=== PATIENT | female | born 1970 | race African-American/Black ===

== ENCOUNTER 2020-11-26 16:48 | Inpatient (IN) | payer OTHER ==
[~2020-11-26] VITALS: Ht 172.7 cm; Wt 176.0 kg
[2020-11-26 16:48] VITALS: BP 128/66
[2020-11-26 17:31] LABS: ABSOLUTE NEUTROPHILS 2.8 thou/uL (1.4-8.2); BASOPHILS 0.3 % (0.0-2.0); HEMATOCRIT 40.4 % (37.0-47.0); HEMOGLOBIN 13.1 gm/dL (12.0-15.0); LYMPHOCYTES 24.6 % (24.0-44.0); MCH 26.5 pg (26.0-34.0); MCHC 32.5 g/dL (28.0-37.0); MCV 81.7 fL (80.0-100.0); MONOCYTES 5.8 % (1.0-8.0); PLATELET COUNT 157 thou/uL (150-400); POLYS 69.3 % (36.0-66.0); RBC 4.94 mil/uL (4.20-5.00); RDW 15.6 % (10.5-14.5); WBC 4.1 thou/uL (4.0-11.0)
[2020-11-26 17:35] LABS: POTASSIUM 3.7 mmol/L (3.5-5.1)
[2020-11-26 17:41] LABS: ALBUMIN 2.7 g/dL (3.4-5.0); TOTAL BILIRUBIN 0.4 mg/dL (0.2-1.0); TOTAL PROTEIN 7.5 g/dL (6.4-8.2)
[2020-11-26 20:05] LABS: URINE BILIRUBIN NEGATIVE (Negative); URINE BLOOD TRACE (Negative); URINE CLARITY CLEAR; URINE COLOR YELLOW; URINE GLUCOSE-RANDOM* 2+ (Negative); URINE KETONES NEGATIVE (Negative); URINE LEUKOCYTES-REFLEX NEGATIVE (Negative); URINE NITRITE-REFLEX NEGATIVE (Negative); URINE PROTEIN (DIPSTICK) 2+ (Negative); URINE UROBILINOGEN 0.2 E.U./dl (0.2-1.0)
[2020-11-26 20:16] LABS: SQUAMOUS >10 Many /LPF (0-3)
[2020-11-26 20:20] LABS: URINE RBC 1-2 Rare /HPF (NONE SEEN); URINE WBC-REFLEX 6-15 Few /HPF (0-5)
--- NOTE | 2020-11-27 07:19 | NUR ---
TOOK OVER CARE FROM PAL POWERS AT THIS TIME
--- NOTE | 2020-11-27 07:37 | EKG ---
[address] [place] [address] ELECTROCARDIOGRAM REPORT Name: CLOUDALEK Room #: 170-5 ADM IN M.R.#: [id number] Admission: 11/26/20 Attend Phys: Bautista Hein MD Discharge: Date of : 66 Report #: [id number] [facility] ED Test Date: 2020-11-26 Test Time: 17:11:47 Pat Name: ALEK CLOUD Department: Room: 170 Gender: F Gum Cook: TAMAR : 1970 Requested By: Norris Gallagher Order Number: [id number] MD: Josemanuel Morejon Measurements Intervals [place] Rate: 117 P: 55 TX: 145 QRS: 48 QRSD: 81 T: 0 QT: 303 QTc: 423 Interpretive Statements Sinus tachycardia Atrial premature complex Probable left atrial enlargement No previous ECG available for comparison Electronically Signed On 11-27-2020 7:37:10 CDT by Josemanuel Morejon [email or web address] <ELECTRONICALLY SIGNED> By: Josemanuel Morejon MD, [facility] 11/27/20 0737 1711 1711 Josemanuel Morejon MD, FACC /EPI
--- NOTE | 2020-11-27 08:20 | NUR ---
PT BG 415 AT THIS TIME. HOSPITALIST PAGED
[2020-11-27 08:36] LABS: HEMATOCRIT 39.8 % (37.0-47.0); HEMOGLOBIN 12.7 gm/dL (12.0-15.0); MCH 26.5 pg (26.0-34.0); MCV 82.9 fL (80.0-100.0); RBC 4.8 mil/uL (4.20-5.00); RDW 16.1 % (10.5-14.5)
[2020-11-27 08:42] LABS: CALCIUM 8.2 mg/dL (8.5-10.1)
[2020-11-27] MEDS ORDERED: GLUMETZA1000 PO (09:17)
[2020-11-27] MEDS ORDERED: XARELTO20 MG PO (09:17)
[2020-11-27] MEDS ORDERED: LIPITOR 40 MG T40 M1 PO (09:17)
[2020-11-27] MEDS ORDERED: DUONEB (09:19)
[2020-11-27] MEDS ORDERED: COMBIVENT RESPIM4 GM (09:19)
[2020-11-27] MEDS ORDERED: VICTOZA0.6 MG/0.1 SUBQ (09:21)
[2020-11-27] MEDS ORDERED: HYDROCODON-ACE1 EA11 PO (09:21)
[2020-11-27] MEDS ORDERED: SERTRALINE HCL25 M1 PO (09:22)
[2020-11-27] MEDS ORDERED: HYDROCHLOROTHIA25 M1 PO (09:22)
--- NOTE | 2020-11-27 09:29 | NUR ---
50-year-old female presented to the ED on 11-26-20 at 1657 for previous positive Covid dx at [place] on 11-19-20 and worsening shortness of air. She arrived via local EMS. She relates she was tested positive on 11/19/2020. She also is complaining of grayish phlegm as well as myalgias and pain when she coughs across her chest. She reports that she did not receive any of the vaccines and positive in the ED from [facility] testing. She reports additional symptoms of fever and fatigue as well. The patient has been admitted for Acute hypoxic respiratory failure secondary to COVID-19 infection, fever, cough, cough DM type 2, HTN/HLD, DIMAS with CPAP. ED nursing assessment shows that patient is A&O x4. As the patient's plan of care from the MD's gets closer to discharge; CM will follow for discharge planning needs.
--- NOTE | 2020-11-27 11:45 | NUR ---
DR. GONZALEZ PAGED AT THIS TIME D/T PT RESPIRATORY STATUS.
--- NOTE | 2020-11-27 12:24 | NUR ---
DR. GONZALEZ AT BEDSIDE AT THIS TIME
[2020-11-27 12:38] LABS: BE(vivo) -2.3 mmol/L (-2 to +3); HCO3 22.3 mmol/L (22.0-26.0); PCO2 37.8 mmHg (35.0-45.0); PO2 64.5 mmHg (80.0-100.0); pH 7.389 (7.360-7.450); sO2 92.5 % (92.0-98.0)
[2020-11-27 14:27] VITALS: BP 129/70
--- NOTE | 2020-11-27 14:56 | EKG ---
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 <ELECTRONICALLY SIGNED> By: Josemanuel Morejon MD, FACC 11/27/20 1456 38 38 Josemanuel Morejon MD, [facility] /EPI
--- NOTE | 2020-11-27 15:22 | NUR ---
REPORT GIVEN TO PAL HUGO AT THIS TIME. DENIES FURTHER QUESTIONS AT THIS TIME. NOTES THAT [facility] IS STILL CLEANING ROOM AT THIS TIME AND WILL CALL WHEN CLEAN.
[2020-11-27 15:46] VITALS: BP 103/59
[2020-11-27 16:40] VITALS: BP 122/81
[2020-11-27 19:42] VITALS: BP 140/76
[2020-11-28 00:06] LABS: GLYCOHEMOGLOBIN (HGB A1C) 9.4 % (4.8-5.6)
[2020-11-28 02:10] LABS: ABSOLUTE NEUTROPHILS 8.2 thou/uL (1.4-8.2); BASOPHILS 0.1 % (0.0-2.0); HEMATOCRIT 35.4 % (37.0-47.0); HEMOGLOBIN 11.5 gm/dL (12.0-15.0); LYMPHOCYTES 5.7 % (24.0-44.0); MCH 26.9 pg (26.0-34.0); MCHC 32.5 g/dL (28.0-37.0); MCV 82.8 fL (80.0-100.0); MONOCYTES 2.8 % (1.0-8.0); PLATELET COUNT 181 thou/uL (150-400); POLYS 91.4 % (36.0-66.0); RBC 4.27 mil/uL (4.20-5.00); RDW 16.2 % (10.5-14.5); WBC 8.9 thou/uL (4.0-11.0)
[2020-11-28 03:21] VITALS: BP 128/82
[2020-11-28 03:25] LABS: ALBUMIN 2.2 g/dL (3.4-5.0); ANION GAP 10 mmol/L (7-16); BUN 14 mg/dL (7-18); CHLORIDE 104 mmol/L (98-107); CO2 24 mmol/L (21-32); CREATININE 0.9 mg/dL (0.6-1.0); DIRECT BILIRUBIN < 0.1 mg/dL (<0.1-0.2); GLUCOSE 359 mg/dL (74-106); PHOSPHORUS 2.3 mg/dL (2.5-4.9); POTASSIUM 3.7 mmol/L (3.5-5.1); SGOT 33 U/L (15-37); SGPT 47 U/L (30-65); SODIUM 138 mmol/L (136-145); TOTAL BILIRUBIN 0.2 mg/dL (0.2-1.0); TOTAL PROTEIN 6.6 g/dL (6.4-8.2)
[2020-11-28 03:36] LABS: INR 1.06; PROTIME 11.5 Seconds (10.5-12.1)
[2020-11-28 07:45] VITALS: BP 134/74
--- NOTE | 2020-11-28 11:31 | NUR ---
INITIAL ASSESSMENT: SW reviewed chart and spoke with nursing and attending physician. Pt was admitted from home due to COVID pneumonia. Pt placed in Enhanced Isolation. Pt had positive COVID test at [facility] on 11/19/2020. Pt has not received the COVID vaccine. Pt is afebrile and currenlty requiring 7L of O2. Pt is on IV abx and IV steroids. Pt has been started on Remdesivir. SW spoke with pt via phone. Introduced role of SW. Pt is alert/orientated and states she lives at home alone. Pt's son has been staying with her since she was dx with COVID. Prior to admission, pt was independent with ADLs. No use of DME for ambulation. Pt has an inhaler and cpap machine through [facility]. No hx of services or post-acute placement. Pt's PCP is Dr. Allegra Rodriguez with [facility] in [place]. Therapy evals to be ordered when pt is able to participate. SW is following to assist as needed with discharge planning.
--- NOTE | 2020-11-28 13:02 | NUR ---
Consulted d/t weight changes. BMI 57, extreme class III obesity. Attempted to phone pt x2 today, with no answer. Unable to obtain weight hx. Dx COVID+, covid PNE, SOA. On vit c, Vit D, thiamine, MVI, glargine, ABT, IVFs, steroids, remdesivir. BS range 371-467, likely elevated d/t steroids[facility] intake this AM. BM 11/27. Follow weight and intake trends, place at low nutrition risk at this time.
[2020-11-28 15:25] VITALS: BP 137/73
--- NOTE | 2020-11-28 17:12 | NUR ---
PT RESTING COMFORTABLY. SHE HAS BEEN EDUCATED ON POSSIBLY IMPORTANCE OF SELF PRONNING. WAITING FOR FAMILY TO BRING IN HOME CPAP. BLOOD SUGARS NOT UNDER CONTROL. PT AFEBRILE, ADEQUATE UOP, NO BM, APPROPRIATE APPETITE. PT CONTINUES TO BE ON 6L NC. PT AND FAMILY HAVE BEEN THOUROUGHLY UPDATED AND EDUCATED ON PT CONDITION AND POC. PT SLOWLY PROGRESSING TOWARDS POC.
[2020-11-28 21:46] VITALS: BP 124/68
[2020-11-29 01:06] LABS: HIV ANTIBODY Non Reactive (Non Reactive)
[2020-11-29 03:13] LABS: ABSOLUTE NEUTROPHILS 6.9 thou/uL (1.4-8.2); BASOPHILS 0.2 % (0.0-2.0); EOSINOPHILS 0.1 % (0.0-3.0); HEMATOCRIT 34.8 % (37.0-47.0); HEMOGLOBIN 11.2 gm/dL (12.0-15.0); LYMPHOCYTES 8.6 % (24.0-44.0); MCH 26.8 pg (26.0-34.0); MCHC 32.2 g/dL (28.0-37.0); MCV 83.2 fL (80.0-100.0); MONOCYTES 2.2 % (1.0-8.0); PLATELET COUNT 223 thou/uL (150-400); POLYS 88.9 % (36.0-66.0); RBC 4.19 mil/uL (4.20-5.00); RDW 16.3 % (10.5-14.5); WBC 7.8 thou/uL (4.0-11.0)
[2020-11-29 03:50] LABS: ANION GAP 9 mmol/L (7-16); BUN 16 mg/dL (7-18); CALCIUM 8.4 mg/dL (8.5-10.1); CHLORIDE 107 mmol/L (98-107); CO2 25 mmol/L (21-32); CREATININE 0.9 mg/dL (0.6-1.0); DIRECT BILIRUBIN < 0.1 mg/dL (<0.1-0.2); GLUCOSE 334 mg/dL (74-106); PHOSPHORUS 2.1 mg/dL (2.5-4.9); POTASSIUM 4.3 mmol/L (3.5-5.1); SGOT 34 U/L (15-37); SGPT 37 U/L (30-65); SODIUM 141 mmol/L (136-145); TOTAL BILIRUBIN 0.3 mg/dL (0.2-1.0); TOTAL PROTEIN 6.4 g/dL (6.4-8.2)
--- NOTE | 2020-11-29 04:23 | NUR ---
PT REMAIN ALERT AND ORIENT TIMES FOUR. UP TO BSC WITH STEADY GAIT. PT WAS INCONT. TO URINE R/T BSC BEING WAY TOO FAR AND PT WAS NOT ABLE TO MAKE THE DISTANCE TO GET ON THE COMMODE. PT FELT HUMILIATED. RN CLEANED URINE OFF THE FLOOR AND CHANGED ALL OF THE LINEN, PROVIDED A CLEAN GOWN AND ASSURED PT THAT SHE WAS OK. PT STATE THAT SHE CALLED OUT SEVERAL TIMES ON THE DAY SHIFT AND NO ONE WOULD COME TO ASSIST HER TO THE COMMODE. PT STATE THAT SHE COULD NO LONGER HOLD HER URINE. PT IS CURRENTLY ON 6 LITERS, REFUSED CPAP TONIGHT. FAMILY IS SUPPOSE TO DROP HER HOME CPAP OFF TOMORROW. HYDROCODONE AND QUAIFENESIN GIVEN FOR DRY COUGH AND "ALL OVER" PAIN. VSS, AFEBRILE. SLOW PROGRESS TOWARDS DC GOALS. WILL CONTINUE TO MONITOR.
[2020-11-29 07:49] VITALS: BP 152/101
--- NOTE | 2020-11-29 14:36 | NUR ---
PT RESTING COMFORTABLY. ON 10L NC, OR BIPAP AT 50%. PTS SON BROUGHT HOME CPAP. PT HAS BEEN EDUCATED ON THE IMPORTANCE OF LETTING THE RN KNOW IF SHE BEGINS TO FEEL FATIGUED. PT AFEBRILE, ADEQUATE UOP, BM X1, APPROPRIATE APPETITE. HIGH DOSE SS INSULIN NOW IN PLACE. PT AND FAMILY HAVE BEEN THOUROUGHLY UPDATED AND EDUCATED ON PT CONDITION AND POC. PT SLOWLY PROGRESSING TOWARDS POC.
--- NOTE | 2020-11-29 15:12 | NUR ---
SW reviewed chart and spoke with nursing and attending physician. Pt remains in Enhanced Isolation due to COVID. Pt is afebrile and requiring 10 L of O2. Pt's family brought in her home cpap machine. Pt is on IV steroids and Remdesivir. Pt might need to transfer to ICU. No weekend discharge planned. SW is following to assist as needed with discharge planning.
[2020-11-29 20:11] VITALS: BP 144/87
[2020-11-30 04:20] VITALS: BP 140/88
[2020-11-30 04:26] LABS: ALBUMIN 2.1 g/dL (3.4-5.0); CALCIUM 8.3 mg/dL (8.5-10.1); CREATININE 0.8 mg/dL (0.6-1.0); DIRECT BILIRUBIN 0.1 mg/dL (<0.1-0.2); PHOSPHORUS 2.9 mg/dL (2.5-4.9); POTASSIUM 3.7 mmol/L (3.5-5.1); TOTAL BILIRUBIN 0.4 mg/dL (0.2-1.0); TOTAL PROTEIN 6.5 g/dL (6.4-8.2)
[2020-11-30 04:39] LABS: BASOPHILS 0.4 % (0.0-2.0); HEMATOCRIT 36.5 % (37.0-47.0); HEMOGLOBIN 11.9 gm/dL (12.0-15.0); LYMPHOCYTES 13.7 % (24.0-44.0); MCHC 32.6 g/dL (28.0-37.0); MCV 82.8 fL (80.0-100.0); MONOCYTES 4.2 % (1.0-8.0); PLATELET COUNT 253 thou/uL (150-400); POLYS 81.7 % (36.0-66.0); RBC 4.41 mil/uL (4.20-5.00); WBC 6.1 thou/uL (4.0-11.0)
--- NOTE | 2020-11-30 05:04 | NUR ---
PROGRESS PT A/0 X4, UP AD SHANTI. LUNGS COARSE AND WHEEZY THROUGHOUT RT TREATMENTS ORDERED, ON CPAP WHICH SHE IS HAVING DIFFICULTY TOLERATING ALARMS BECAUSE SHE IS MOUTH BREATHING AND HAS A NASAL MASK ON. PIV WITH INTERMITTENT ABTS. VOIDING QS. TELEMETRY READING SR/ST LOW 100'S CONTINUE TO MONITOR.
[2020-11-30 07:42] VITALS: BP 135/81
[2020-11-30 10:03] VITALS: BP 135/81
--- NOTE | 2020-11-30 10:32 | NUR ---
ASSUMED CARE OF PT THIS AM. PT IS A&O X4. CURRENTLY ON CPAP 10L, 75% FIO2. PT C/O NONCARDIAC CHEST PAIN D/T COUGHING. GIVEN PRN PAIN & COUGH MEDICATIONS. SOB WITH EXERTION. STATES SHE "CANT EAT WITHOUT HYPPERVENTILATING". PTS BROTHER, JOSE MANUEL, CALLED TO GET UPDATE THIS AM. STAND BY ASSIST TO BSC WHEN PT FEELING STRONG ENOUGH. ENHANCED PRECAUTIONS IN PLACE. WILL CONTINUE TO MONITOR.
[2020-11-30 11:19] VITALS: BP 144/68
[2020-11-30 15:42] VITALS: BP 138/75
[2020-11-30 19:46] VITALS: BP 140/68
[2020-12-01 03:56] VITALS: BP 156/83
--- NOTE | 2020-12-01 07:29 | NUR ---
PROGRESS PT A/O X4, UP WITH SBA. LUNGS COARSE AND DIMINISHED, PT ON CPAP 80%. SATS MAINTAINING IN MID 90'S. COUGHING UP SOME BLOOD TINGED SPUTUM. VOIDING QS, HAD A BM LAST NIGHT REMDESIVIR ADMINISTERED ORDERED CONTINUE POC.
[2020-12-01 08:47] LABS: T-SPOT.TB Negative
[2020-12-01 09:28] VITALS: BP 131/82
[2020-12-01 12:43] VITALS: BP 140/79
[2020-12-01 16:00] VITALS: BP 149/72
--- NOTE | 2020-12-01 16:39 | NUR ---
RN ASSUMED PT'S CARE AT 0700AM, PT IS A&OX4, PT IS CONTINUING CIPAP WITH O2 80% TO KEEP O2SAT AT 93-100%, PT'S O2SAT WILL DROP WITH PT'S ACTIVITIES, PT'S VS ARE STABLE, PT IS CONTINUING TO TREAT COVOD , PT'S VS ARE STABLE BY THIS TIME.
[2020-12-01 19:24] VITALS: BP 146/68
[2020-12-02 04:38] VITALS: BP 149/77
--- NOTE | 2020-12-02 05:24 | NUR ---
PT CONTINUES TO C/O NON-CARDIAC CHEST PAIN FROM COUGHING. SHE ALSO C/O GENERALIZED BODY ACHES. PRN COUGH MEDICINE AND PAIN MEDS GIVEN. SEE EMAR. DESPITE COUGH MEDICINE, SHE C/O INCREASED COUGH DURING THE NIGHT. CEPACOL LOZENGE GIVEN TO HELP WITH SORE THROAT/COUGH. SPO2 >92% ON CPAP. VSS. PROGRESSING SLOWLY TOWARD POC GOALS.
[2020-12-02 07:22] VITALS: BP 145/82
[2020-12-02 09:00] VITALS: BP 144/69
[2020-12-02 11:28] VITALS: BP 144/69
--- NOTE | 2020-12-02 14:56 | NUR ---
SW reviewed chart and spoke with nursing and attending physician. Pt remains in Enhanced Isolation due to COVID. Pt is afebrile and requiring continuous bipap support. Pt is on IV steroids. SW received call from pt's PCP's office requesting update. Info provided. Therapy evals to be ordered when pt is able to participate. KOJO is following to assist as needed with discharge planning.
[2020-12-02 15:26] VITALS: BP 142/66
--- NOTE | 2020-12-02 19:30 | NUR ---
RN ASSUMED PT'S CARE AT 0700-1900PM, PT IS A&OX4, PT WAS ON CIPAP WITH O2 60% AT MORNING, PT 'S CIPAP HAS CHANGED TO O2 2L/MIN/NC SINCE AFTERNOOON, PT'S O2SAT STAYS AT 93-96% AT RESTING, PT HAS SOB WITH ACTIVITIES, PT CAN GET UP TO BSC WITH ASSIST,RN HAS REPORTED TO NEXT SHIFT TO KEEP EYE ON PT.
[2020-12-02 20:20] VITALS: BP 131/67
[2020-12-03 05:16] VITALS: BP 149/94
--- NOTE | 2020-12-03 05:49 | NUR ---
VSS OVERNIGHT. TELE SHOWS SB/SR. PT STILL HAVING COMPLAINTS OF CHEST PAIN CAUSED BY COUGHING. TYLENOL AND HYDRO GIVEN FOR PAIN, AND COUGH MEDICATION GIVEN WITH GOOD RESULTS. 02 SATURATIONS IN MID 90'S WHILE ON 3L NC. CONTINUOUS PULSE OX IN PLACE.
[2020-12-03 07:22] VITALS: BP 126/74
[2020-12-03 11:16] VITALS: BP 116/94
--- NOTE | 2020-12-03 14:17 | NUR ---
KOJO reviewed chart and spoke with nursing and attending physician. Pt remains in Enhanced Isolation due to COVID. Pt is afebrile and on 6L of O2. Pt is on IV steroids. KOJO spoke with pt via phone. Pt states she feels better and is hoping to work towards discharging home. Pt is aware that she may need home O2 and/or HH when discharged. KOJO contacted attending physician regarding orders for theayo evals. KOJO is following to assist as needed with discharge planning.
[2020-12-03 15:40] VITALS: BP 140/85
[2020-12-03 19:58] VITALS: BP 112/56
[2020-12-04 04:17] VITALS: BP 137/72
[2020-12-04 07:28] VITALS: BP 126/48
[2020-12-04 11:12] VITALS: BP 149/71
--- NOTE | 2020-12-04 13:08 | NUR ---
SW reviewed chart and spoke with nursing and attending physician. Pt remains in Enhanced Isolation due to COVID. Pt is afebrile and on 6L of O2. Pt is on IV steroids. OT evaluation completed today. PT to evaluate pt tomorrow, per pt's request. SW to discuss discharge plans with pt after therapy recommendations. SW is folloiwng to assist as needed with discharge planning.
[2020-12-04 15:28] VITALS: BP 152/82
--- NOTE | 2020-12-04 18:20 | NUR ---
RN ASSUMED PT'S CARE AT 0700AM, PT IS A&OX4, PT IS ON O2 3-6L/MIN/NC, PT NEEDS MEOR O2 ( UP TO 6L/MIN/NC ) WITH ACTIVITIES, PT'S VS ARE STABLE, PT NEEDS HELP TO GET UP TO BSC, PT DENIES PAIN AT DAY SHIFT.
[2020-12-04 19:37] VITALS: BP 138/69
[2020-12-05 02:25] LABS: BASOPHILS 0.2 % (0.0-2.0); EOSINOPHILS 2.7 % (0.0-3.0); HEMATOCRIT 33.8 % (37.0-47.0); HEMOGLOBIN 10.9 gm/dL (12.0-15.0); LYMPHOCYTES 29.4 % (24.0-44.0); MCHC 32.3 g/dL (28.0-37.0); MCV 83.7 fL (80.0-100.0); PLATELET COUNT 218 thou/uL (150-400); POLYS 58.7 % (36.0-66.0); RBC 4.04 mil/uL (4.20-5.00); RDW 15.7 % (10.5-14.5); WBC 5.2 thou/uL (4.0-11.0)
[2020-12-05 02:49] LABS: D-DIMER 0.66 ug/mLFEU (0.19-0.50); INR 1.05; PROTIME 11.4 Seconds (10.5-12.1)
[2020-12-05 03:51] VITALS: BP 141/118
[2020-12-05 03:57] LABS: ALBUMIN 2.1 g/dL (3.4-5.0); CALCIUM 7.6 mg/dL (8.5-10.1); CREATININE 0.8 mg/dL (0.6-1.0); POTASSIUM 3.7 mmol/L (3.5-5.1); TOTAL BILIRUBIN 0.3 mg/dL (0.2-1.0); TOTAL PROTEIN 5.4 g/dL (6.4-8.2)
[2020-12-05 08:00] VITALS: BP 138/65
--- NOTE | 2020-12-05 09:31 | NUR ---
Nutrition follow up: Pt noted with continued good intakes at meals >80% avg. BG range still high with most readings >300. Continues on steroids. 3# gain this week. Continues low nutrition risk.
[2020-12-05 12:00] VITALS: BP 123/61
--- NOTE | 2020-12-05 15:49 | NUR ---
SW reviewed chart and spoke with nursing and attending physician. Pt remains in Enhanced Isolation due to COVID. Pt is afebrile and on 5L of O2. Pt is on IV steroids. 5N consult ordered. Awaiting additional therapy notes to determine if pt would qualify for inpt acute rehab. SW is following to assist as needed with discharge planning.
[2020-12-05 16:00] VITALS: BP 147/69
[2020-12-05 20:24] VITALS: BP 160/91
[2020-12-06 00:07] VITALS: BP 123/52
[2020-12-06 07:38] VITALS: BP 144/74
[2020-12-06 11:14] VITALS: BP 144/76
--- NOTE | 2020-12-06 12:48 | NUR ---
CARE ASSUMED THIS AM, PT ALERT AND ORIENTED X4, DENIES ANY CHEST PAIN, NAUSEA AND VOMITTING. ON 3L OF OXYGEN. UP IN CHAIR, NO SIGNS OF DISTRESS. UP TO BSC WITH STAND BY ASSIST. PT IS PROGRESSING TOWARDS POC. PT SON CALLED AND UPDATED ABT PT CARE. WILL [id number] TO MONITOR
--- NOTE | 2020-12-06 14:31 | NUR ---
KOJO reviewed chart and spoke with nursing and attending physician. Pt remains in Enhanced Isolation due to COVID. Pt is afebrile and on 2-4L of O2. Pt is on IV steroids. No weekend discharge planned. 5N consulted. Per 5N rehabilitation medicine physician, pt is back to her baseline. Pt has also refused to work with therapy. KOJO spoke with pt via phone to discuss discharge plan. Pt states she feels that she will be strong enough to return home on Wednesday/early next week. KOJO discussed need for HH services and likely home O2. Pt verbalized understanding and is agreeable with both. Options provided. No preference voiced. SW [facility] and Home O2 referral to [facility]. Notified liaison for both companies. Pt will need a rest/exercise oximetry completed to determine home O2 needs. KOJO is following to assist as needed with discharge planning.
[2020-12-06 15:57] VITALS: BP 159/79
[2020-12-06 19:39] VITALS: BP 147/73
[2020-12-07 04:00] VITALS: BP 141/70
--- NOTE | 2020-12-07 04:18 | NUR ---
continues on oxygen at 1 liter during day. she requires 2.0 liters at night while resting. pts appetite is good. she has been asking for extra food at night. sitting up at the edge of the bed this am washing herself.
[2020-12-07 07:34] VITALS: BP 139/75
--- NOTE | 2020-12-07 15:37 | NUR ---
assumed care of pt at 0700. pt aox4 no acute distress. requires 2L NC at rest and 4L w/ activity. up w/ sba. pain controlled with med regimen. calls out appropriately. anticipate d/c soon.
[2020-12-07 15:51] VITALS: BP 141/78
[2020-12-07 20:10] VITALS: BP 137/66
--- NOTE | 2020-12-08 04:52 | NUR ---
continues on 2 liters tonight. she has been resting well. she is getting close to discharge and she is aware of this. no concerns voiced.
[2020-12-08 04:56] VITALS: BP 128/76
[2020-12-08 07:48] VITALS: BP 114/669
--- NOTE | 2020-12-08 13:01 | NUR ---
CARE ASSUMED THIS AM, PT ALERT AND ORIENTED X4, DENIES ANY CHEST PAIN, NAUSEA AND VOMITTING. PT ON 2L OF OXYGEN. UP TO BSC INDEOENDENTLY. POSSIBLE /C TODAY, PT STATED SHE WILL PREFER TO GO [facility] TOMMORROW, DR. BECKMAN MADE AWARE. PT DENIES ANY NEEDS, WILL CONTINUE TO MONITOR
[2020-12-08 15:32] VITALS: BP 118/74
[2020-12-08 19:40] VITALS: BP 135/84
--- NOTE | 2020-12-09 04:44 | NUR ---
Slept some during the night. Maintaining O2 sat in the low 90's on 2L/NC. Shortness of breath with exertion. Cont. on enhanced precaution , afebrile. Cough med and pain med given with good relief.Up to commode on her own. C/O cramping on her hands at beginning of shift. Verbalized she had 2 days ago but it went away. Warm blanket given then soaked her hands with warm water and stated it helped. Denies any other concern. Making some progress towards care plan goals.
[2020-12-09 05:10] VITALS: BP 122/70
[2020-12-09 08:00] VITALS: BP 135/75
[2020-12-09] MEDS ORDERED: LANTUS SUBQ ×2 (12:44→16:40)
[2020-12-09] MEDS ORDERED: ZINC SULFATE50 MG PO (12:44)
[2020-12-09] MEDS ORDERED: GUAIFENESIN DM S5 ML PO (12:44)
[2020-12-09] MEDS ORDERED: VITAMIN B-1100 M2 PO (12:44)
[2020-12-09] MEDS ORDERED: PREDNISONE 20 M20 MG PO (12:44)
[2020-12-09] MEDS ORDERED: ACEROLA C500 MG PO (12:44)
[2020-12-09] MEDS ORDERED: CEPACOL SORE T1 EAC7 PO (12:44)
[2020-12-09] MEDS ORDERED: VITAMIN D325 MC2 PO (12:44)
[2020-12-09] MEDS ORDERED: PEPCID20 MG PO (12:44)
[2020-12-09] MEDS ORDERED: HUMALOG100 UNIT/1 SUBQ ×2 (12:44→16:40)
[2020-12-09 12:54] VITALS: BP 135/75
[2020-12-09 13:32] VITALS: BP 135/75
--- NOTE | 2020-12-09 14:15 | NUR ---
DISCHARGE NOTE: SW reviewed chart and spoke with nursing and attending physician. Pt remains in Enhanced Isolation due to COVID. Pt is medically stable for discharge home today. Recommendation made for pt to have HH services and home O2. SW faxed discharge ppwk to [facility] . Notified liaison of discharge. Confirmed info was received. SW faxed rest/exercise oximetry and script for O2 to [facility]. Notified [facility] liaison who delivered portable O2 tank to the hospital. Pt needs 2L at rest and 4L with activity. Contact info for HH and Home O2 placed in pt's discharge summary. Pt's family will provide transportation home later today. No additional SW needs identified at this time, but is available to assist should needs arise.
--- NOTE | 2020-12-09 15:05 | HC ---
[facility] [place] [address] CONSULTATION Name: ALEK CLOUD Room #: 360-P [facility] IN M.R.#: [id number] Admission: 11/26/20 Attend Phys: Bautista Hein MD Discharge: Date of : 66 Report #: [id number] THIS REPORT FOR: cc: ALPHONSE - No family physician/PCP FAM - No family physician/PCP Norris Sena MD ~ DATE OF SERVICE: 12/06/2020 HISTORY OF PRESENT ILLNESS: The patient is a 50-year-old -[place] female with COVID-19 diagnosed 11/19/2020, worsening shortness of breath, admitted 11/26/2020 to [facility]. She was diagnosed with acute respiratory failure, developed ARDS, said pulmonary, infectious disease closely involved. She was needing up to 10 liters CPAP, prone ventilator as able. She has gradually improved. She has been on the methylprednisolone, empiric treatment, azithromycin and Rocephin. She does have a history of morbid obesity, BMI noted to be 51. Continues in COVID isolation, close monitoring. Oxygen needs have decreased down to 3-4 liters. We are seeing her in rehabilitation medicine consultation. She has considerable weakness and decreased strength with a likely concurrent critical illness myopathy and generalized weakness and debilitation. PAST MEDICAL HISTORY: Includes diabetes mellitus type 2, morbid obesity, hypertension. 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 History of obstructive sleep apnea on CPAP, which she uses whenever she is sleeping. MEDICATIONS: Please see the full medication listing. ALLERGIES: No known drug allergies. SOCIAL HISTORY: Lives in an apartment. Typically, she lives alone, but her son is currently staying with her and would be able to be with her. He works environmental studies department chair. There are 15 steps to get into the apartment. She is trying to get on to the ground floor, but has not worked out yet, so she still needs to go up to 15 steps. Did not utilize gait aids premorbidly. REVIEW OF SYSTEMS: No current complaints of chest pain, shortness of breath or abdominal discomfort. PHYSICAL EXAMINATION: GENERAL: A 50-year-old morbidly obese -Ethiopian female in no obvious distress. She is pleasant, alert and oriented. VITAL SIGNS: Temperature 36.7, pulse 92, respirations 20, blood pressure 144/74. HEENT: Faces appeared symmetric. EXTREMITIES: She has functional range of motion of both upper extremities. [facility] [address] [place] [address] CONSULTATION Name: ALEK CLOUD Room #: 360-P [facility] IN .R.#: [id number] Admission: 11/26/20 Attend Phys: Bautista Hein MD Discharge: Date of : 66 Report #: [id number] would grade her strength at a 3+ to 4-/5. DTRs are trace to 1. Lower extremities, no focal calf swelling, functional range of motion, strength is at least a grade 3+ to 4-/5. She was able to sit to stand with assistance and ambulated a short distance of 20 feet min assist, 4 liters. No gait aids. ASSESSMENT: A 50-year-old -Eth[place]ian female with the following problem list: 1. Critical illness myopathy/generalized debilitation. 2. Acute respiratory failure secondary to COVID-19, complicated by acute respiratory distress syndrome. 3. Morbid obesity. 4. COVID-19 pneumonia. 5. Diabetes mellitus. 6. History of right lower extremity deep venous thrombosis and pulmonary embolism, on lifelong anticoagulation. 7. Hypertension. 8. Obstructive sleep apnea, for which she was on CPAP whenever sleeping. PLAN: Agree that she would benefit from an acute in-hospital inpatient rehabilitation stay as she further medically stabilizes. Therapy is continuing to work with her and we will follow along with you regarding transitioning her for an acute inpatient rehabilitation stay so that she can further improve her strength and endurance and independence and be able to return back to the home setting. We will be seeking insurance precertification as she further stabilizes. Thank you for asking us to assist in this patient's care. <ELECTRONICALLY SIGNED> By: Norris Sena MD 12/09/20 1505 [id number] 2054 Norris Sena MD /nt
--- NOTE | 2020-12-09 16:18 | NUR ---
DISCHARGE INSTRUCTION AND NEW MED INFO GIVEN TO PT. PT AWARE OF APPTS. PT EDUCATED ON HOW TO TAKE INSULIN, DENIES ANY QUESTIONS. HOME O2 WITH PT, PT EDUCATED ON HOW TO USE IT. SW SET UP HH FOR PT. PT TAKEN DOWN VIA WHEELCHAIR.
== END 2020-12-09 16:45 | disposition home health service (06) | DRG 177 ==
LOC: ER 16:48 → 3W 20:18 → EROBS 20:18 → 3W 11-27 16:05
PROVIDERS: Nurse Practitioner; Nurse Practitioner Family; Specialist; ADMIT Hospitalist; ATTEND Hospitalist
PROC: XW033H5 Introduction of Tocilizumab into Peripheral Vein, Percutaneous Approach, New Technology Group 5 (ICD-10-PCS; principal; 2020-11-27)
PROC: XW033E5 Introduction of Remdesivir Anti-infective into Peripheral Vein, Percutaneous Approach, New Technology Group 5 (ICD-10-PCS; principal; 2020-11-27)
PROC: 5A09357 Assistance with Respiratory Ventilation, Less than 24 Consecutive Hours, Continuous Positive Airway Pressure (ICD-10-PCS; principal; 2020-11-27)
PROC: 5A0935A Assistance with Respiratory Ventilation, Less than 24 Consecutive Hours, High Flow/Velocity Cannula (ICD-10-PCS; 2020-11-28)
PROC: 5A09357 Assistance with Respiratory Ventilation, Less than 24 Consecutive Hours, Continuous Positive Airway Pressure (ICD-10-PCS; 2020-11-29)
PROC: 5A0935A Assistance with Respiratory Ventilation, Less than 24 Consecutive Hours, High Flow/Velocity Cannula (ICD-10-PCS; 2020-11-29)
PROC: 5A09357 Assistance with Respiratory Ventilation, Less than 24 Consecutive Hours, Continuous Positive Airway Pressure (ICD-10-PCS; 2020-11-30)
PROC: 5A0935A Assistance with Respiratory Ventilation, Less than 24 Consecutive Hours, High Flow/Velocity Cannula (ICD-10-PCS; 2020-11-30)
DX: U07.1 COVID-19 (principal); J12.82 Pneumonia due to coronavirus disease 2019; J80 Acute respiratory distress syndrome; Z68.43 Body mass index [BMI] 50.0-59.9, adult; E78.5 Hyperlipidemia, unspecified; I10 Essential (primary) hypertension; E11.65 Type 2 diabetes mellitus with hyperglycemia; G47.33 Obstructive sleep apnea (adult) (pediatric); E66.01 Morbid (severe) obesity due to excess calories; F41.9 Anxiety disorder, unspecified; F32.9 Major depressive disorder, single episode, unspecified; Z86.718 Personal history of other venous thrombosis and embolism; Z79.899 Other long term (current) drug therapy; Z86.711 Personal history of pulmonary embolism; Z79.84 Long term (current) use of oral hypoglycemic drugs; Z99.81 Dependence on supplemental oxygen
CPT/HCPCS: 10080; 10879